=== PATIENT | female | born 1995 | race Caucasian/White ===

== ENCOUNTER 2017-01-21 05:46 | Day surgery (SDC) ==
--- NOTE | 2017-01-17 10:55 | HISTORY AND PHYSICAL ---
DATE OF PLANNED PROCEDURE: 01/21/2017. PREOPERATIVE DIAGNOSES: Cervical dysplasia. CONDITION: Stable. HISTORY OF PRESENT ILLNESS: Ms Hoyos is a 21-year-old, 1, para 1, who has been followed with abnormal Pap smears. She has a high-grade lesion, however colposcopy biopsies showed moderate dysplasia. She desires definitive treatment. She does not desire any more children. Her high risk HPV was positive. PAST MEDICAL HISTORY: She has no past medical history, other than the abnormal Pap smear. PAST SURGICAL HISTORY: She had one previous vaginal delivery. ALLERGIES: She has no known drug allergies. CURRENT MEDICATIONS: She is on no current medications. FAMILY HISTORY: Significant for diabetes in a maternal grandmother and mental illness in the mother. HABITS: She is an every-day smoker. PHYSICAL EXAMINATION: VITAL SIGNS: Weight 131, blood pressure 122/76. GENERAL: She is alert and cooperative, in no distress. NECK: Supple. LUNGS: Clear. HEART: Regular sinus rhythm. ABDOMEN: Soft. PELVIC: Deferred. EXTREMITIES: No cyanosis, clubbing, edema in her extremities. ASSESSMENT: Cervical dysplasia, high risk human papilloma virus was positive. PLAN: Da Fercho total laparoscopic hysterectomy with bilateral salpingectomy.
[2017-01-21] MEDS ORDERED: PEPCID ONE (06:18)
[2017-01-21] MEDS ORDERED: LR 1,000 ML ONE ×5 (06:19→12:40)
[2017-01-21] MEDS ORDERED: KEFZOL 1 GM/D5W 50 ML ONE (06:19)
[2017-01-21] MEDS ORDERED: REGLAN ONE (06:19)
[2017-01-21] MEDS ORDERED: VALIUM ONE (06:22)
[2017-01-21] MEDS ORDERED: MARCAINE 0.25% PF/EPI 1:200,000 ONE (06:39)
[2017-01-21] MEDS ORDERED: D10W 0 ML ONE (06:39)
[2017-01-21 07:58] LABS: URINE MICRO REVIEW NEEDED? NO; URINE SOURCE CATH
[2017-01-21 08:03] LABS: BILIRUBIN URINE NEGATIVE (NEGATIVE); BLOOD URINE MODERATE (NEGATIVE); COLOR YELLOW; GLUCOSE URINE NEGATIVE (NEGATIVE); LEUKOCYTES URINE NEGATIVE (NEGATIVE); NITRITE URINE NEGATIVE (NEGATIVE); PROTEIN URINE TRACE mg/dL (NEGATIVE); SP GRAVITY URINE 1.029; TURBIDITY URINE CLEAR (CLEAR); UROBILINOGEN URINE NORMAL (NORMAL)
[2017-01-21 08:04] LABS: UR EPITHELIAL CELLS <10 /HPF (<10); URINE BACTERIA NEGATIVE /HPF; URINE RBC <10 /HPF (<10); URINE WBC <10 /HPF (<10)
[2017-01-21] MEDS ORDERED: DEMEROL ONE ×3 (08:51→11:59)
[2017-01-21] MEDS ORDERED: PHENERGAN ONE ×2 (08:57→09:44)
[2017-01-21] MEDS ORDERED: PERIDEX MT SCH (09:39)
[2017-01-21] MEDS ORDERED: PHENERGAN IM PRN (09:39)
[2017-01-21] MEDS ORDERED: LR 1,000 ML IV SCH (09:39)
[2017-01-21] MEDS ORDERED: ZOFRAN IV PRN (09:39)
[2017-01-21] MEDS: DEMEROL IM PRN ×2 (09:54→12:02)
[2017-01-21] MEDS ORDERED: TORADOL ONE (11:39)
[2017-01-21 12:11] LABS: HEMATOCRIT 40.7 % (37.0-47.0)
[2017-01-21] MEDS ORDERED: FENTANYL ONE (12:23)
[2017-01-21] MEDS ORDERED: DIPRIVAN 1% ONE (12:24)
[2017-01-21] MEDS ORDERED: VERSED ONE (12:24)
[2017-01-21] MEDS ORDERED: ZOFRAN ONE (12:40)
[2017-01-21] MEDS ORDERED: XYLOCAINE-MPF 2% ONE (12:40)
[2017-01-21] MEDS ORDERED: ROBINUL ONE (12:40)
[2017-01-21] MEDS ORDERED: NORCURON ONE (12:40)
[2017-01-21] MEDS ORDERED: QUELICIN (DOSE) ONE (12:40)
[2017-01-21] MEDS ORDERED: DECADRON ONE (12:40)
[2017-01-21] MEDS ORDERED: NEOSTIGMINE ONE (12:40)
[2017-01-21 13:25] VITALS: BP 129/79
[2017-01-21] MEDS ORDERED: TORADOL IV SCH (14:39)
--- NOTE | 2017-01-21 15:38 | OPERATIVE NOTE ---
PROCEDURE DATE: 01/21/2017 PREOPERATIVE DIAGNOSIS: Cervical dysplasia and high risk human papillomavirus infection. POSTOPERATIVE DIAGNOSIS: Cervical dysplasia and high risk human papillomavirus infection. PLANNED PROCEDURE: da Fercho total laparoscopic hysterectomy with bilateral salpingectomy. SURGEON: Carlo Dunn MD ANESTHESIA: General endotracheal with Dr. Sousa FINDINGS: She had normal anatomy. ESTIMATED BLOOD LOSS: 5 mL. COMPLICATIONS: None. PATHOLOGY: Uterus and tubes. DRAINS: Baker catheter. DESCRIPTION OF PROCEDURE: Ms Hoyos is a 21-year-old 1, para 1, with the above diagnoses, who desired definitive treatment. She understood the risks of the surgery, desired to proceed. All questions were answered. Consents were verified. She was brought to the operating room where she was placed under general endotracheal anesthesia prepped and draped in dorsal lithotomy position. The initial part of the case trocar were placed. First an umbilical trocar by insufflating the infraumbilical area with 0.25% Marcaine with epinephrine and placing an 11 mm trocar directly into the abdomen. Once placed, it was verified with the camera, no evidence of injury to the bowel. She was insufflated with CO2, placed in Trendelenburg. The robotic ports were placed to the right and to the left under direct visualization. Once this was done, attention turned below. A speculum was placed. The cervix was grasped with a single-tooth tenaculum. Prolene stitches were placed at 12 o'clock and 6 o'clock. The uterus was dilated to admit a manipulator Hegar dilators to 8 and the manipulator was placed. The balloon was blown up. The suture ends were placed to fenestrations were on the cervical manipulator the needle was cut and removed. The cervical cap was pushed down against the cervix. Then the stay was pushed down and screwed into place. The speculum was removed. The Baker was placed. This completed the initial scrub portion. As robot was docked, took control of the robotic center. Using PK and the scissors, the left tube was dissected off of the ovary, then the round ligament grasped, cauterized, and cut. The uteroovarian was grasped, cauterized, and cut. The supporting ligaments of the uterus the broad ligament grasped, cauterized, and cut to the internal cervical os. At which point, the posterior and anterior leaves were . The bladder was sharply dissected off of the cervix anteriorly, the uterine arteries were skeletonized to the side. They were grasped, cauterized, and cut. The same procedure was repeated on the patient's right. Once both uterine arteries had been cauterized and cut, the bladder was pushed back. Then using the scissors in a sweeping motion, the vagina was cut down at 12 o'clock until the cap was encountered. Then the cap was traced around 360 degrees without difficulty completely detached in the uterus. Then the uterus and the tubes were pulled through and left in the vagina. The scissors were switched with a needle thompson, and a needle that had previously been dropped and tacked to the side was grasped and the cuff was closed in a running nonlocking fashion. Once this was done, the blood loss was suctioned out. There was less than 5 mL. Irrigation was done, no bleeding. Pressure was dropped to 3, no bleeding. So at this point, the needle was buried in the posterior cuff and then the scissors were replaced. The needle construction driver and the suture was cut, then the needle was grasped with a laparoscopic needle thompson and this completed the robotic portion. Rescrubbed, the needle had been removed. A disposable Ignacio-Eleazar was used to close the umbilical trocar site under direct visualization. Once this was done, the environmental services floor tech closed the other 3 skin incisions. It should be noted that both ureters were noted to be peristalsing normally before finishing the robotic case and the urine was clear, so no cystoscopy was done. She was taken down from dorsal lithotomy, awakened, and taken to recovery room in stable condition.
== END 2017-01-21 12:55 | disposition home or self-care (01) ==
LOC: OR 05:46
PROVIDERS: ATTEND Obstetrics & Gynecology
DX: N87.1 Moderate cervical dysplasia (principal); R87.810 Cervical high risk human papillomavirus (HPV) DNA test positive; F17.210 Nicotine dependence, cigarettes, uncomplicated
CPT/HCPCS: 81001; 85014; 85018; 88307; J0330; J0690; J1100; J1885; J2175; J2250; J2405; J2550; J3010; J7120; J2710; S0020